=== PATIENT | male | born 1960 | race Caucasian/White ===

== ENCOUNTER → 2024-02-27 11:17 | Outpatient (REF) | payer MEDICARE, OTHER, SELFPAY | LOC: HWRAD 11:17 | PROVIDERS: ATTENDING PHYSICIAN Family Medicine | DX: Z87.891 Personal history of nicotine dependence (principal) | CPT/HCPCS: 71271 ==

== ENCOUNTER → 2024-05-13 09:09 | Outpatient (REF) | payer MEDICARE, OTHER, SELFPAY | LOC: RCS 09:09 | PROVIDERS: ATTENDING PHYSICIAN Family Medicine | DX: I11.9 Hypertensive heart disease without heart failure (principal) | CPT/HCPCS: 93306 ==

== ENCOUNTER → 2024-07-29 11:44 | Outpatient (REF) | payer MEDICARE, OTHER, SELFPAY | LOC: HWRAD 11:44 | PROVIDERS: ATTENDING PHYSICIAN Family Medicine | DX: E27.8 Other specified disorders of adrenal gland (principal) | CPT/HCPCS: 74170; Q9967 ==

== ENCOUNTER → 2025-03-15 13:29 | Outpatient (REF) | payer MEDICARE, OTHER, SELFPAY | LOC: MRI 3T 13:29 | PROVIDERS: ATTENDING PHYSICIAN Physician Assistant; FAMILY PHYSICIAN Family Medicine | DX: M54.16 Radiculopathy, lumbar region (principal) | CPT/HCPCS: 72148 ==

== ENCOUNTER → 2025-08-02 14:08 | Outpatient (REF) | payer MEDICARE, OTHER, SELFPAY | LOC: HWRAD 14:08 | PROVIDERS: ATTENDING PHYSICIAN Family Medicine | DX: Z87.891 Personal history of nicotine dependence (principal); Z72.0 Tobacco use | CPT/HCPCS: 71271 ==

== ENCOUNTER 2025-08-25 15:21 | Emergency (ER) | payer MEDICARE, OTHER, SELFPAY ==
[2025-08-25 15:34] VITALS: BP 158/100
--- NOTE | 2025-08-25 17:27 | ED.GENMED ---
History of Present Illness
General
Chief Complaint: Back Pain
Time Seen by Provider: 08/25/25 16:49
History of Present Illness
History of Present Illness:
65-year-old male with history of chronic back pain presents to the emergency department for evaluation of worsening low back pain. He has no lower extremity radiculopathy or paresthesias. He had a previous MRI in March showing moderate to advanced
degenerative disc space disease most pronounced at L1 and L2 as well as L2 and 3. He was started on gabapentin by his primary care physician yesterday and sent for outpatient x-rays which he did not yet obtain. Denies any falls or trauma. No loss
of bladder or bowel function.
Past History
Social History
Employment: Employed
Review of Systems
Review of Systems
Allergies reviewed?: Yes
All Other Systems: ROS reviewed and negative except as documented in HPI and ROS
Phy Exam
Physical Exam
Physical Exam:
GEN: Well appearing, NAD, WDWN
HEENT: Oral mucosa moist, no scleral icterus
Cardiac: Regular rate
Lung: No respiratory distress, no tachypnea
MSK: No gross deformity or injuries, no reproducible tenderness to the lumbar spine or paraspinous musculature. Bilateral lower extremity strength is 5 out of 5 in all garcia and patellar reflexes are 1+ bilaterally, sensation intact
Skin: Good color, no pallor or jaundice, no rashes
Neuro: AO x3, moves all extremities freely
Psych: Calm, cooperative
Course
Orders/Labs/Results
Orders:
Orders
08/25/25 17:03
Ketorolac [Toradol] 30 mg IM NOW STA
Oxycodone [Roxicodone] 5 mg PO NOW STA
Vital Signs
Initial and Last Documented VS:
Initial Vital Signs
Temp Pulse Resp BP Pulse Ox
98.0 F 98 16 158/100 98
08/25/25 15:34 08/25/25 15:34 08/25/25 15:34 08/25/25 15:34 08/25/25 15:34
Last Documented Vital Signs
Temp Pulse Resp BP Pulse Ox
98.0 F 98 16 158/100 98
08/25/25 15:34 08/25/25 15:34 08/25/25 15:34 08/25/25 15:34 08/25/25 17:28
MDM/Problems Addressed
MDM/Problems Addressed:
Patient has no clinical symptoms of critical spinal cord compression. He has no lower extremity radiculopathy or neurologic dysfunction. Given that he is taking NSAIDs and Tylenol without relief we will trial him on a course of steroids and
recommend he continue with outpatient orthopedic follow-up plans
*Pulse Oximetry
SaO2: 98
Oxygen Mode of Delivery: Room air
Patient hypoxic: no
*Critical Care Note
Total Time (30-74mins, 75-104mins- exclusive of procedures): Not Applicable
ED Attending Note
-
Portions of this chart may have been created with voice recognition software.� Occasional wrong word or��sound alike� substitutions may have occurred due to the inherent limitations of voice recognition software.
Discharge Plan
Departure
Patient Disposition: Home (Routine Discharge)
Date of Disposition: 08/25/25
Time of Disposition: 17:28
Patient with high blood pressure during this ER visit?: No
Discharge Problem:
Chronic low back pain
Instructions: Low Back Pain (DC)
Prescriptions:
New
methylprednisolone [Medrol (Michael)] 4 mg tablets,dose pack
See Rx Instructions .ROUTE .COMPLEX Qty: 21 0RF
Rx Instructions:
orally per package directions
oxycodone 5 mg tablet
5 mg PO Q8H PRN (Reason: Pain) Qty: 10 0RF
Activity Restrictions/Additional Instructions:
Follow up with your orthopedist for further management
Interventions
Interventions:
*Risk Screen - Suicide Last Done: 08/25/25 15:34
*General Assessment Last Done: 08/25/25 15:34
*Neglect/Abuse Screening Last Done: 08/25/25 15:34
*ED COVID-19 Vaccine History Last Done: 08/25/25 15:34
*ED Influenza Vaccine History Last Done: 08/25/25 15:34
ED-Musculoskeletal Assessment Last Done: 08/25/25 17:00
Discharge Date and Time
Print Language: PORTUGUESE
[2025-08-25] MEDS: ROXICODONE 5 MG PO (17:36)
[2025-08-25] MEDS: TORADOL 30 MG IM (17:37)
== END 2025-08-25 19:01 | disposition home or self-care (01) ==
LOC: EMR 15:21
PROVIDERS: EMERGENCY PHYSICIAN Emergency Medicine; FAMILY PHYSICIAN Family Medicine
DX: M51.360 Other intervertebral disc degeneration, lumbar region with discogenic back pain only (principal)
CPT/HCPCS: 99284; 96372

== ENCOUNTER → 2025-08-29 14:05 | Outpatient (REF) | payer MEDICARE, OTHER, SELFPAY | LOC: RAD 14:05 | PROVIDERS: ATTENDING PHYSICIAN Family Medicine | DX: M54.50 Low back pain, unspecified (principal) | CPT/HCPCS: 72110 ==